=== PATIENT | male | born 1990 | race Caucasian/White ===

== ENCOUNTER 2023-12-05 10:10 | Day surgery (SDC) | payer BC, OTHER ==
[~2023-12-05 10:10] MED LIST: BENZOCAINE SPRAY 1 CAN TOPICAL PRN; MIDAZOLAM 2 MG/2 ML VIAL IV PRN; fentaNYL (PF) 50 MCG/ML 5 ML AMP IVP PRN
[2023-12-05] MEDS: IV FLUID CONTINUATION 1,000 ML IV ONE (10:19)
[2023-12-05 10:40] VITALS: TEMP 98.1
[2023-12-05] MEDS ORDERED: fentaNYL (PF) 50 MCG/ML 2 ML AMP ONE (11:02)
[2023-12-05] MEDS: MIDAZOLAM 2 MG/2 ML VIAL IVP ONE ×3 (11:15→11:23)
[2023-12-05] MEDS: fentaNYL (PF) 50 MCG/ML 2 ML AMP IVP ONE ×2 (11:15→11:20)
[2023-12-05] MEDS: BENZOCAINE SPRAY 1 CAN TOPICAL ONE (11:20)
--- NOTE | 2023-12-05 11:32 | P.PCN ---
Date of Procedure: 12/05/23 Operative Findings: TRANSESOPHAGEAL ECHOCARDIOGRAM LIE DETECTOR OPERATOR: SHRAVAN VALDEZ MD, RPVI INDICATION: Rule out cardiac source of embolization SEDATION: Conscious sedation COMPLICATION: None LEVEL OF SEDATION Moderate with sedation length of 12 minutes PROCEDURE DESCRIPTION: After obtaining an informed consent, the patient was brought to transesophageal echocardiogram room. Pulse oximetry and heart monitors were attached to the patient. The patient throat was sprayed using lidocaine. The patient was turned into left lateral position. After that a bite guard was placed. After an appropriate conscious sedation was initiated, the transesophageal echocardiogram was advanced through a bite guard into the mid esophagus. A 2-D echocardiogram images, color Doppler images, continuous wave images, pulse-wave images, of various cardiac structure were performed. After that the transesophageal echocardiogram probe was advanced into the stomach and fixed to obtain transgastric view was. The probe was brought into the mid esophagus. Inter-atrial septum was interrogated using 2D images, color Doppler images, and then contrast study. After that transesophageal echocardiogram was withdrawn out and upon withdrawing the descending thoracic aorta all the way up to the arch was evaluated. CONCLUSION: 1. No evidence of cardiac source of embolization 2. Intact left atrial appendage with no thrombus 3. Intact interatrial septum with no PFO or ASD 4. Normal biventricular systolic function 5. Moderate biatrial enlargement 6. Moderate mitral regurgitation
[2023-12-05 14:05] VITALS: BP 125/71; RESP 16
[2023-12-05 14:08] VITALS: PULSE 67
== END 2023-12-05 12:41 | disposition home or self-care (01) ==
LOC: CATHCVL 10:10
PROVIDERS: ATTEND Internal Medicine Interventional Cardiology
DX: I34.0 Nonrheumatic mitral (valve) insufficiency
CPT/HCPCS: 93312; 93320; 93325

== ENCOUNTER 2024-06-04 16:22 | Emergency (ER) | payer BC ==
[2024-06-04 17:26] LABS: Basophils % (A) 0 %; Eosinophils # (A) 0.1 k/uL (0-0.7); Eosinophils % (A) 1 %; HGB 16.9 gm/dL (13.0-17.5); Lymphocytes # (A) 0.4 k/uL (1.0-4.8); Lymphocytes % (A) 3 %; MCHC 33.2 g/dL (31.0-37.0); MCV 81.6 fL (80.0-100.0); Mean Platelet Volume 6.6; Monocytes # (A) 0.6 k/uL (0-1.0); Monocytes % (A) 5 %; Neutrophils # (A) 11.2 k/uL (1.3-7.7); Neutrophils % (A) 91 %; Platelet Count 206 k/uL (150-450); RBC 6.25 m/uL (4.30-5.90); RDW 12.5 % (11.5-15.5); WBC 12.3 k/uL (3.8-10.6)
[2024-06-04] MEDS: ONDANSETRON 4 MG/2 ML VIAL IVP STA (17:34)
[2024-06-04] MEDS: SODIUM CHLORIDE 0.9% 1,000 ML IV STA (17:34)
[2024-06-04 17:39] LABS: ALT 49 U/L (4-49); African American GFR (CKD) >90 (>60 ml/min/1.73 sqM); Amylase 64 U/L (30-110); Anion Gap 15 mmol/L; Blood Urea Nitrogen 14 mg/dL (9-20); Calcium 9.5 mg/dL (8.4-10.2); Carbon Dioxide 19 mmol/L (22-30); Chloride 103 mmol/L (98-107); Glucose 87 mg/dL (74-99); Lipase 93 U/L (23-300); Non-African American GFR(CKD) >90 (>60 ml/min/1.73 sqM); Sodium 137 mmol/L (137-145)
[2024-06-04 17:40] LABS: AST 39 U/L (17-59); Albumin 5.1 g/dL (3.5-5.0); Alkaline Phosphatase 102 U/L (38-126); Potassium 4.7 mmol/L (3.5-5.1); Total Protein 8.2 g/dL (6.3-8.2)
[2024-06-04 19:20] VITALS: PULSE 100; RESP 18; TEMP 99
--- NOTE | 2024-06-04 19:25 | ED ---
General Adult HPI - General Chief complaint: Nausea/Vomiting/Diarrhea Stated complaint: vomiting Time Seen by Provider: 06/04/24 16:53 Source: patient Mode of arrival: ambulatory Limitations: no limitations - History of Present Illness Initial comments: 34-year-old male presenting with chief complaint of nausea vomiting and diarrhea. Started this morning around 6 AM. States that his is recently sick with norovirus and thinks that he has caught it. He is having some abdominal pain as well as a headache and lower back pain. He also admits to shobha weaver. He was unable to take his medications today. He reports that he is stroke back in January and takes Plavix and aspirin. No chest pain or difficulty breathing. No vision disturbances. States that he does have a bit of dizziness when he moves around. No numbness tingling or URI-like symptoms. - Related Data Home Medications Medication Instructions Recorded Confirmed Aspirin [Adult Low Dose Aspirin EC] 81 mg PO DAILY 12/01/23 06/04/24 Atorvastatin Calcium [Lipitor] 80 mg PO HS 12/01/23 06/04/24 Clopidogrel [Plavix] 75 mg PO DAILY 12/01/23 06/04/24 Levothyroxine Sodium [Synthroid] 50 mcg PO DAILY 12/01/23 06/04/24 Magnesium Oxide [Magox 400] 400 mg PO DAILY 06/04/24 06/04/24 Ubidecarenone [Coenzyme Q10] 200 mg PO W/LUNCH 06/04/24 06/04/24 Previous Rx's Medication Instructions Recorded Ondansetron Odt [Zofran Odt] 4 mg PO Q8HR PRN #20 tab 06/04/24 Allergies Allergy/AdvReac Type Severity Reaction Status Date / Time sulfamethoxazole AdvReac Rapid Verified 06/04/24 18:51 [From Bactrim] Heart Rate trimethoprim [From Bactrim] AdvReac Rapid Verified 06/04/24 18:51 Heart Rate Review of Systems ROS Statement: Those systems with pertinent positive or pertinent negative responses have been documented in the HPI. ROS Other: All systems not noted in ROS Statement are negative. Past Medical History Past Medical History: CVA/TIA, Hyperlipidemia, Liver Disease, Thyroid Disorder Additional Past Medical History / Comment(s): kimberly schlatter, migraines, cva 11/21/23 no residual issues, fatty liver, blood clot in rt arm History of Any Multi-Drug Resistant Organisms: None Reported Additional Past Surgical History / Comment(s): wisdom teeth Past Anesthesia/Blood Transfusion Reactions: No Reported Reaction Past Psychological History: No Psychological Hx Reported Smoking Status: Former smoker Past Alcohol Use History: None Reported Past Drug Use History: None Reported - Past Family History Father Family Medical History: No Reported History General Exam Limitations: no limitations General appearance: alert, in no apparent distress Head exam: Present: atraumatic, normocephalic, normal inspection Eye exam: Present: normal appearance, EOMI Neck exam: Present: normal inspection. Absent: meningismus Respiratory exam: Present: normal lung sounds bilaterally. Absent: respiratory distress, wheezes, rales, rhonchi, stridor Cardiovascular Exam: Present: normal rhythm, tachycardia, normal heart sounds. Absent: systolic murmur, diastolic murmur, rubs, gallop, clicks GI/Abdominal exam: Present: soft, tenderness. Absent: distended, guarding, rebound, rigid Neurological exam: Present: alert, oriented X3 Psychiatric exam: Present: normal affect, normal mood Skin exam: Present: warm, dry Course Vital Signs 06/04/24 06/04/24 06/04/24 16:24 17:05 19:17 Temperature 99.5 F 99.0 F Pulse Rate 116 H 93 100 Respiratory 18 16 18 Rate Blood Pressure 126/83 117/90 104/68 O2 Sat by Pulse 99 100 100 Oximetry 06/04/24 20:12 Temperature Pulse Rate 100 Respiratory 18 Rate Blood Pressure 120/78 O2 Sat by Pulse 100 Oximetry Medical Decision Making - Medical Decision Making Was pt. sent in by a medical professional or institution (, PA, COAGULATING DRYING SUPERVISOR, urgent care, hospital, or fpc...) When possible be specific @ -No Did you speak to anyone other than the patient for history (EMS, parent, family, police, friend...)? What history was obtained from this source @ -No Did you review nursing and triage notes (agree or disagree)? Why? @ -I reviewed and agree with nursing and triage notes Were old charts reviewed (outside hosp., previous admission, EMS record, old EKG, old radiological studies, urgent care reports/EKG's, fpc records)? Report findings @ -No old charts were reviewed Differential Diagnosis (chest pain, altered mental status, abdominal pain women, abdominal pain men, vaginal bleeding, weakness, fever, dyspnea, syncope, headache, dizziness, GI bleed, back pain, seizure, CVA, palpatations, mental health, musculoskeletal)? @ -Differential includes gastroenteritis, colitis, diverticulitis, appendicitis, cholecystitis, bowel obstruction, not an all-inclusive list EKG interpreted by me (3pts min.). @ -As above X-rays interpreted by me (1pt min.). @ -None done CT interpreted by me (1pt min.). @ -Brain CT shows no acute intracranial process U/S interpreted by me (1pt. min.). @ -None done What testing was considered but not performed or refused? (CT, X-rays, U/S, labs)? Why? @ -I offered to perform an abdominal CT, patient declines stating that he is feeling better and thinks he has the same virus that his had What meds were considered but not given or refused? Why? @ -None Did you discuss the management of the patient with other professionals (professionals i.e. , PA, COAGULATING DRYING SUPERVISOR, lab, RT, psych nurse, child welfare social worker, senior science consultant, teacher, bank officer, case loader operator)? Give summary @ -No Was smoking cessation discussed for >3mins.? @ -No Was critical care preformed (if so, how long)? @ -No Were there social determinants of health that impacted care today? How? (Homelessness, low income, unemployed, alcoholism, drug addiction, transportation, low edu. Level, literacy, decrease access to med. care, half-way, rehab)? @ -No Was there de-escalation of care discussed even if they declined (Discuss DNR or withdrawal of care, Hospice)? DNR status @ -No What co-morbidities impacted this encounter? (DM, HTN, Smoking, COPD, CAD, Cancer, CVA, ARF, Chemo, Hep., AIDS, mental health diagnosis, sleep apnea, morbid obesity)? @ -None Was patient admitted / discharged? Hospital course, mention meds given and route, prescriptions, significant lab abnormalities, going to OR and other pertinent info. @ -34-year-old male presenting with chief complaint of nausea vomiting and diarrhea. His recently had norovirus and he thinks that he caught the same bug. He is also complaining of some abdominal discomfort, lower back pain, and headache. History and physical examination are conducted. White count 12.3, this may be reactive. Bilirubin 2.0, likely due to the vomiting. Amylase and lipase are WNL. He is negative for influenza, RSV, COVID. I offered to perform an abdominal CT, patient declines. Patient is concerned because he is taking Plavix and has a headache, he is concerned that with the vomiting he could be having some kind of acute intracranial process happening. GCS 15 with no evidence of any neurological deficits. We decided to order a CT to help ease his worries. CT of the brain shows no acute process. Patient was able to take his medications here with no difficulty and is tolerating oral intake. He is educated on today's findings and supportive management. Follow-up with PCP. Report back to ER with any new or worsening symptoms. Discussed return paramet ers and answered all questions. Patient conveyed verbal understanding and agreed to the plan. I discussed this case in detail with my attending Dr. Aranda Undiagnosed new problem with uncertain prognosis? @ -No Drug Therapy requiring intensive monitoring for toxicity (Heparin, Nitro, Insulin, Cardizem)? @ -No Were any procedures done? @ -No Diagnosis/symptom? @ -Gastroenteritis Acute, or Chronic, or Acute on Chronic? @ -Acute Uncomplicated (without systemic symptoms) or Complicated (systemic symptoms)? @ -Uncomplicated Side effects of treatment? @ -No Exacerbation, Progression, or Severe Exacerbation? @ -No Poses a threat to life or bodily function? How? (Chest pain, USA, PA, pneumonia, PE, COPD, DKA, ARF, appy, cholecystitis, CVA, Diverticulitis, Homicidal, Suicidal, threat to staff... and all critical care pts) @ -Low likelihood - Lab Data Result diagrams: 06/04/24 17:16 06/04/24 17:16 Lab Results 06/04/24 06/04/24 06/04/24 Range/Units 17:16 17:16 17:16 WBC 12.3 H (3.8-10.6) k/uL RBC 6.25 H (4.30-5.90) m/uL Hgb 16.9 (13.0-17.5) gm/dL Hct 51.0 (39.0-53.0) % MCV 81.6 (80.0-100.0) fL MCH 27.0 (25.0-35.0) pg MCHC 33.2 (31.0-37.0) g/dL RDW 12.5 (11.5-15.5) % Plt Count 206 (150-450) k/uL MPV 6.6 Neutrophils % 91 % Lymphocytes % 3 % Monocytes % 5 % Eosinophils % 1 % Basophils % 0 % Neutrophils # 11.2 H (1.3-7.7) k/uL Lymphocytes # 0.4 L (1.0-4.8) k/uL Monocytes # 0.6 (0-1.0) k/uL Eosinophils # 0.1 (0-0.7) k/uL Basophils # 0.0 (0-0.2) k/uL Sodium 137 (137-145) mmol/L Potassium 4.7 (3.5-5.1) mmol/L Chloride 103 (98-107) mmol/L Carbon Dioxide 19 L (22-30) mmol/L Anion Gap 15 mmol/L BUN 14 (9-20) mg/dL Creatinine 0.69 (0.66-1.25) mg/dL Est GFR (CKD-EPI)AfAm >90 (>60 ml/min/1.73 sqM) Est GFR (CKD-EPI)NonAf >90 (>60 ml/min/1.73 sqM) Glucose 87 (74-99) mg/dL Plasma Lactic Acid Pierre 1.0 (0.7-2.0) mmol/L Calcium 9.5 (8.4-10.2) mg/dL Total Bilirubin 2.0 H (0.2-1.3) mg/dL AST 39 (17-59) U/L ALT 49 (4-49) U/L Alkaline Phosphatase 102 (38-126) U/L Total Protein 8.2 (6.3-8.2) g/dL Albumin 5.1 H (3.5-5.0) g/dL Amylase 64 (30-110) U/L Lipase 93 (23-300) U/L Influenza Type A (PCR) (Not Detectd) Influenza Type B (PCR) (Not Detectd) RSV (PCR) (Not Detectd) SARS-CoV-2 (PCR) (Not Detectd) 06/04/24 Range/Units 17:16 WBC (3.8-10.6) k/uL RBC (4.30-5.90) m/uL Hgb (13.0-17.5) gm/dL Hct (39.0-53.0) % MCV (80.0-100.0) fL MCH (25.0-35.0) pg MCHC (31.0-37.0) g/dL RDW (11.5-15.5) % Plt Count (150-450) k/uL MPV Neutrophils % % Lymphocytes % % Monocytes % % Eosinophils % % Basophils % % Neutrophils # (1.3-7.7) k/uL Lymphocytes # (1.0-4.8) k/uL Monocytes # (0-1.0) k/uL Eosinophils # (0-0.7) k/uL Basophils # (0-0.2) k/uL Sodium (137-145) mmol/L Potassium (3.5-5.1) mmol/L Chloride (98-107) mmol/L Carbon Dioxide (22-30) mmol/L Anion Gap mmol/L BUN (9-20) mg/dL Creatinine (0.66-1.25) mg/dL Est GFR (CKD-EPI)AfAm (>60 ml/min/1.73 sqM) Est GFR (CKD-EPI)NonAf (>60 ml/min/1.73 sqM) Glucose (74-99) mg/dL Plasma Lactic Acid Pierre (0.7-2.0) mmol/L Calcium (8.4-10.2) mg/dL Total Bilirubin (0.2-1.3) mg/dL AST (17-59) U/L ALT (4-49) U/L Alkaline Phosphatase (38-126) U/L Total Protein (6.3-8.2) g/dL Albumin (3.5-5.0) g/dL Amylase (30-110) U/L Lipase (23-300) U/L Influenza Type A (PCR) Not Detected (Not Detectd) Influenza Type B (PCR) Not Detected (Not Detectd) RSV (PCR) Not Detected (Not Detectd) SARS-CoV-2 (PCR) Not Detected (Not Detectd) Disposition Clinical Impression: Gastroenteritis Disposition: HOME SELF-CARE Condition: Good Instructions (If sedation given, give patient instructions): Acute Nausea and Vomiting (ED), Acute Diarrhea (ED) Additional Instructions: Follow-up with PCP. Report back to ER with any new or worsening symptoms. Prescriptions: Ondansetron Odt [Zofran Odt] 4 mg PO Q8HR PRN #20 tab PRN Reason: Nausea Is patient prescribed a controlled substance at d/c from ED?: No Referrals: Ze Flannery MD [Primary Care Provider] - 1-2 days Time of Disposition: 20:09
[2024-06-04] MEDS: SODIUM CHLORIDE 0.9% 1,000 ML IV ONE (19:34)
--- NOTE | 2024-06-04 19:41 | CT ---
EXAMINATION TYPE: CT brain wo con DATE OF EXAM: 06/04/2024 7:36 PM COMPARISON: None. CLINICAL INDICATION: Male, 34 years old with history of MASSEY, recent stroke, N/V/D, fatigue, headache a nd weakness starting around 6 am. exposure to NOROvirus. Stroke x 8 months ago TECHNIQUE: Brain: Axial CT images of the brain were obtained with coronal and sagittal reformats created and rev iewed. Contrast used: None. Oral contrast used: None. CT DLP: 1132.4 mGycm, Automated exposure control for dose reduction was used. FINDINGS: Brain: Extra-axial spaces: No abnormal extra-axial fluid collections. Ventricular system: Within normal limits Cerebral parenchyma: No acute intraparenchymal hemorrhage or mass effect. The hoyos-white junction is well differentiated. Cerebellum: Unremarkable. Mass effect: No evidence of midline shift. Intracranial vasculature: unremarkable Soft tissues: Normal. Calvarium/osseous structures: No depressed skull fracture. Paranasal sinuses and mastoid air cells: Mild scattered paranasal sinus disease. Visualized orbits: Orbital contents are intact. IMPRESSION: No acute intracranial process. [facility], , 06/04/2024 7:39 PM
[2024-06-04] MEDS: CLOPIDOGREL 75 MG TAB PO STA (19:50)
[2024-06-04] MEDS: ASPIRIN 81 MG PO STA (19:51)
[2024-06-04 20:13] LABS: Influenza A Not Detected (Not Detectd); Influenza B Not Detected (Not Detectd); RSV Not Detected (Not Detectd)
[2024-06-04 20:18] VITALS: BP 120/78
== END 2024-06-04 20:24 | disposition home or self-care (01) ==
LOC: EC 16:22
DX: K52.9 Noninfective gastroenteritis and colitis, unspecified (principal); Z87.891 Personal history of nicotine dependence; Z11.52 Encounter for screening for COVID-19; Z79.82 Long term (current) use of aspirin
CPT/HCPCS: 36415; 80053; 82150; 83605; 83690; 85025; 87636; 70450; 99284; 96374; 96361 ×3; J2405

== ENCOUNTER 2024-09-15 18:19 | Emergency (ER) | payer BC ==
[2024-09-15 18:26] VITALS: RESP 18; TEMP 98.6
--- NOTE | 2024-09-15 18:47 | ED ---
Neuro HPI - General Chief Complaint: Neuro Symptoms/Deficit Stated Complaint: Numbness in arms Time Seen by Provider: 09/15/24 18:40 Source: patient Mode of arrival: ambulatory - History of Present Illness Is the patient presenting with stroke symptoms?: Yes Last Known Well Date: 09/15/24 Last Known Well Time: 14:00 Onset/Timin -: hour(s) Initial Comments: This patient is a 34-year-old man who states that he has had previous stroke treated with tPA, approximately 1 year ago, coming in to have evaluation of right sided paresthesias to the hand, forearm, right foot and leg. He states the symptoms started approximately 4 hours before arrival here. When they seem to be progressing he felt he should be seen here. The patient's previous episode occurred at [facility]. He reportedly had aphasia, problem with his vision, and right sided numbness. The patient reportedly had treatment with tPA and has no deficit related to that. Location: right arm, right leg History of same: Yes Place: home Severity: mild Quality: numb Improves With: none Worsens With: none Context: gradual onset Associated Symptoms: denies other symptoms Treatments Prior to Arrival: none - Related Data Home Medications: Home Medications Medication Instructions Recorded Confirmed Aspirin [Adult Low Dose Aspirin EC] 81 mg PO DAILY 12/01/23 06/04/24 Atorvastatin Calcium [Lipitor] 80 mg PO HS 12/01/23 06/04/24 Clopidogrel [Plavix] 75 mg PO DAILY 12/01/23 06/04/24 Levothyroxine Sodium [Synthroid] 50 mcg PO DAILY 12/01/23 06/04/24 Magnesium Oxide [Magox 400] 400 mg PO DAILY 06/04/24 06/04/24 Ubidecarenone [Coenzyme Q10] 200 mg PO W/LUNCH 06/04/24 06/04/24 Previous Rx's Medication Instructions Recorded Ondansetron Odt [Zofran Odt] 4 mg PO Q8HR PRN #20 tab 06/04/24 Allergies/Adverse Reactions: Allergies Allergy/AdvReac Type Severity Reaction Status Date / Time sulfamethoxazole AdvReac Rapid Verified 09/15/24 18:26 [From Bactrim] Heart Rate trimethoprim [From Bactrim] AdvReac Rapid Verified 09/15/24 18:26 Heart Rate Review of Systems ROS Statement: Those systems with pertinent positive or pertinent negative responses have been documented in the HPI. ROS Other: All systems not noted in ROS Statement are negative. Constitutional: Denies: fever, chills Eyes: Denies: vision change ENT: Denies: hearing loss Respiratory: Denies: cough, dyspnea Cardiovascular: Denies: chest pain, palpitations, syncope Gastrointestinal: Denies: abdominal pain, nausea, vomiting, diarrhea Genitourinary: Denies: dysuria, hematuria Musculoskeletal: Denies: back pain Skin: Denies: rash Neurological: Reports: numbness, paresthesias. Denies: headache, weakness, confusion, abnormal gait Hematological/Lymphatic: Denies: easy bleeding General Exam General appearance: alert, in no apparent distress Head exam: Present: atraumatic, normocephalic Eye exam: Present: normal appearance, PERRL, EOMI. Absent: scleral icterus, conjunctival injection, nystagmus ENT exam: Present: normal oropharynx Neck exam: Present: normal inspection, full ROM Respiratory exam: Present: normal lung sounds bilaterally. Absent: respiratory distress, wheezes, rales, rhonchi, stridor, accessory muscle use Cardiovascular Exam: Present: regular rate, normal rhythm, normal heart sounds. Absent: systolic murmur, diastolic murmur, rubs, gallop GI/Abdominal exam: Present: soft. Absent: distended, tenderness, guarding, rebound, rigid, mass Extremities exam: Present: normal inspection, normal capillary refill. Absent: pedal edema, calf tenderness Back exam: Present: normal inspection. Absent: CVA tenderness (R), CVA tenderness (L) Neurological exam: Present: alert, oriented X3, CN II-XII intact, normal gait. Absent: motor sensory deficit Skin exam: Present: warm, dry, intact, normal color. Absent: rash Stroke MDM - Lab Data Result diagrams: 09/15/24 19:00 09/15/24 19:00 Lab Results 09/15/24 09/15/24 09/15/24 Range/Units 19:00 19:00 19:00 WBC 8.28 (4.50-10.00) 10*3/uL RBC 5.98 H (4.40-5.60) 10*6/uL Hgb 16.5 (13.0-17.0) g/dL Hct 48.6 (39.6-50.0) % MCV 81.3 (80.0-97.0) fL MCH 27.6 (27.0-32.0) pg MCHC 34.0 (32.0-37.0) g/dL Plt Count 277 (140-440) 10*3/uL MPV 9.0 L (9.5-12.2) fL Immature Gran % (Auto) 0.2 % Neutrophils % 65.5 % Lymphocytes % 24.9 % Monocytes % 7.9 % Eosinophils % 1.0 % Basophils % 0.5 % Immature Gran # 0.02 (0.00-0.04) 10*3/uL Neutrophils # 5.43 (1.80-7.70) 10*3/uL Lymphocytes # 2.06 (0.90-5.00) 10*3/uL Monocytes # 0.65 (0.20-1.00) 10*3/uL Eosinophils # 0.08 (0.04-0.35) 10*3/uL Basophils # 0.04 (0.00-0.10) 10*3/uL PT 10.7 (10.0-12.5) sec INR 1.0 (<1.2) APTT 24.2 (22.0-30.0) sec Sodium 141 (137-145) mmol/L Potassium 4.0 (3.5-5.1) mmol/L Chloride 102 (98-107) mmol/L Carbon Dioxide 24 (22-30) mmol/L Anion Gap 15 mmol/L BUN 14 (9-20) mg/dL Creatinine 0.81 (0.66-1.25) mg/dL Est GFR (CKD-EPI)AfAm >90 (>60 ml/min/1.73 sqM) Est GFR (CKD-EPI)NonAf >90 (>60 ml/min/1.73 sqM) Glucose 86 (74-99) mg/dL Calcium 9.9 (8.4-10.2) mg/dL Total Bilirubin 0.6 (0.2-1.3) mg/dL AST 32 (17-59) U/L ALT 49 (4-49) U/L Alkaline Phosphatase 87 (38-126) U/L Creatine Kinase 169 (55-170) U/L Troponin I (0.000-0.034) ng/mL Total Protein 8.6 H (6.3-8.2) g/dL Albumin 5.1 H (3.5-5.0) g/dL 09/15/24 Range/Units 19:00 WBC (4.50-10.00) 10*3/uL RBC (4.40-5.60) 10*6/uL Hgb (13.0-17.0) g/dL Hct (39.6-50.0) % MCV (80.0-97.0) fL MCH (27.0-32.0) pg MCHC (32.0-37.0) g/dL Plt Count (140-440) 10*3/uL MPV (9.5-12.2) fL Immature Gran % (Auto) % Neutrophils % % Lymphocytes % % Monocytes % % Eosinophils % % Basophils % % Immature Gran # (0.00-0.04) 10*3/uL Neutrophils # (1.80-7.70) 10*3/uL Lymphocytes # (0.90-5.00) 10*3/uL Monocytes # (0.20-1.00) 10*3/uL Eosinophils # (0.04-0.35) 10*3/uL Basophils # (0.00-0.10) 10*3/uL PT (10.0-12.5) sec INR (<1.2) APTT (22.0-30.0) sec Sodium (137-145) mmol/L Potassium (3.5-5.1) mmol/L Chloride (98-107) mmol/L Carbon Dioxide (22-30) mmol/L Anion Gap mmol/L BUN (9-20) mg/dL Creatinine (0.66-1.25) mg/dL Est GFR (CKD-EPI)AfAm (>60 ml/min/1.73 sqM) Est GFR (CKD-EPI)NonAf (>60 ml/min/1.73 sqM) Glucose (74-99) mg/dL Calcium (8.4-10.2) mg/dL Total Bilirubin (0.2-1.3) mg/dL AST (17-59) U/L ALT (4-49) U/L Alkaline Phosphatase (38-126) U/L Creatine Kinase (55-170) U/L Troponin I <0.012 (0.000-0.034) ng/mL Total Protein (6.3-8.2) g/dL Albumin (3.5-5.0) g/dL - Medical Decision Making The patient had chest x-ray that I interpreted as negative for acute infiltrate, pneumothorax, congestive heart failure. The patient had CT scan of the brain that I interpreted as negative for acute intracranial hemorrhage, negative for mass effect or midline shift. Was pt. sent in by a medical professional or institution (, PA, CHIEF JAILER, urgent care, hospital, or assisted...) When possible be specific @ -[No] Did you speak to anyone other than the patient for history (EMS, parent, family, police, friend...)? What history was obtained from this source @ -[No] Did you review nursing and triage notes (agree or disagree)? Why? @ -[I reviewed and agree with nursing and triage notes] Were old charts reviewed (outside hosp., previous admission, EMS record, old EKG, old radiological studies, urgent care reports/EKG's, assisted records)? Report findings @ -[No old charts were reviewed] Differential Diagnosis (chest pain, altered mental status, abdominal pain women, abdominal pain men, vaginal bleeding, weakness, fever, dyspnea, syncope, headache, dizziness, GI bleed, back pain, seizure, CVA, palpatations, mental health, musculoskeletal)? @ -[Differential CVA Ischemic stroke, hemorrhagic stroke, brain tumor, atypical migraine, Wernicke's encephalopathy, seizure, multiple sclerosis, meningitis, encephalitis, hypoglycemia, Guillain-Yarbrough, electrolytes disturbance, myasthenia gravis.... This is not meant to be an all-inclusive list EKG interpreted by me (3pts min.). @ -[I interpreted as above] X-rays interpreted by me (1pt min.). @ -[I interpreted as above CT interpreted by me (1pt min.). @ -[I interpreted as above U/S interpreted by me (1pt. min.). @ -[None done] What testing was considered but not performed or refused? (CT, X-rays, U/S, labs)? Why? @ -[None] What meds were considered but not given or refused? Why? @ -[None] Did you discuss the management of the patient with other professionals (professionals i.e. , PA, CHIEF JAILER, lab, RT, psych nurse, clinical social work therapist, collar worker, teacher, staff readiness officer, returned case inspector)? Give summary @ -[No] Was smoking cessation discussed for >3mins.? @ -[No] Was critical care preformed (if so, how long)? @ -[No] Were there social determinants of health that impacted care today? How? (Homelessness, low income, unemployed, alcoholism, drug addiction, transportation, low edu. Level, literacy, decrease access to med. care, penitentiary, rehab)? @ -[No] Was there de-escalation of care discussed even if they declined (Discuss DNR or withdrawal of care, Hospice)? DNR status @ -[No] What co-morbidities impacted this encounter? (DM, HTN, Smoking, COPD, CAD, Cancer, CVA, ARF, Chemo, Hep., AIDS, mental health diagnosis, sleep apnea, morbid obesity)? @ -[None] Was patient admitted / discharged? Hospital course, mention meds given and route, prescriptions, significant lab abnormalities, going to OR and other pertinent info. @ -[Patient is a 34-year-old man with reported history of stroke who presents with neurologic symptoms that came on but then have completely resolved now. His workup here is unremarkable. The patient may have had TIA. Discussed further evaluation and treatment with the patient who at this point would like to go home. He will maintain low threshold to return coming back if any symptoms recur or new symptoms develop. Otherwise to follow with neurology. Undiagnosed new problem with uncertain prognosis? @ -[No] Drug Therapy requiring intensive monitoring for toxicity (Heparin, Nitro, Insulin, Cardizem)? @ -[No] Were any procedures done? @ -[No] Diagnosis/symptom? @ -[Acute TIA Acute, or Chronic, or Acute on Chronic? @ -[Acute Uncomplicated (without systemic symptoms) or Complicated (systemic symptoms)? @ -[Uncomplicated Side effects of treatment? @ -[No] Exacerbation, Progression, or Severe Exacerbation? @ -[No] Poses a threat to life or bodily function? How? (Chest pain, [place], [place], pneumonia, PE, COPD, DKA, ARF, appy, cholecystitis, CVA, Diverticulitis, Homicidal, Suicidal, threat to staff... and all critical care pts) @ -[No] All treatments are based on ideal body weight as in ED triage - EKG Data -: EKG Interpreted by Me EKG shows normal: sinus rhythm (Rate 81), axis (Normal), intervals ( normal), QRS complexes (Normal), ST-T waves (Normal) Rate: normal Interpretation: no acute changes Past Medical History Past Medical History: CVA/TIA, Hyperlipidemia, Liver Disease, Thyroid Disorder Additional Past Medical History / Comment(s): kimberly schlatter, migraines, cva 11/21/23 no residual issues, fatty liver, blood clot in rt arm History of Any Multi-Drug Resistant Organisms: None Reported Additional Past Surgical History / Comment(s): wisdom teeth Past Anesthesia/Blood Transfusion Reactions: No Reported Reaction Past Psychological History: No Psychological Hx Reported Smoking Status: Former smoker Past Alcohol Use History: Occasional Past Drug Use History: None Reported - Past Family History Father Family Medical History: No Reported History Course Vital Signs 09/15/24 09/15/24 09/15/24 18:23 19:00 22:28 Temperature 98.6 F Pulse Rate 101 H 84 68 Respiratory 18 18 18 Rate Blood Pressure 153/84 144/90 128/76 O2 Sat by Pulse 98 99 99 Oximetry Disposition Clinical Impression: TIA (transient ischemic attack) Disposition: HOME SELF-CARE Condition: Good Instructions (If sedation given, give patient instructions): Transient Ischemic Attack (ED) Is patient prescribed a controlled substance at d/c from ED?: No Referrals: Julian Booker DO [Primary Care Provider] - 1-2 days Matthew Florence MD [STAFF PHYSICIAN] - 1-2 days
[2024-09-15 19:05] LABS: Basophils # (A) 0.04 10*3/uL (0.00-0.10); Basophils % (A) 0.5 %; Eosinophils # (A) 0.08 10*3/uL (0.04-0.35); HCT 48.6 % (39.6-50.0); HGB 16.5 g/dL (13.0-17.0); Lymphocytes # (A) 2.06 10*3/uL (0.90-5.00); Lymphocytes % (A) 24.9 %; MCH 27.6 pg (27.0-32.0); MCV 81.3 fL (80.0-97.0); Monocytes # (A) 0.65 10*3/uL (0.20-1.00); Monocytes % (A) 7.9 %; Neutrophils # (A) 5.43 10*3/uL (1.80-7.70); Neutrophils % (A) 65.5 %; Platelet Count 277 10*3/uL (140-440); RBC 5.98 10*6/uL (4.40-5.60); RDW 12.1 % (11.5-14.5); WBC 8.28 10*3/uL (4.50-10.00)
--- NOTE | 2024-09-15 19:06 | CT ---
EXAMINATION TYPE: CODE STROKE: CT brain wo contr DATE OF EXAM: 09/15/2024 7:00 PM COMPARISON: Prior CT brain study 06/04/2024. CLINICAL INDICATION: Male, 34 years old with history of Neuro deficit, acute, stroke suspected, Code stroke. C/O "pins and needles" in the right hand for about 4 hours. Patient states he can feel it now up into his elbow and into his right foot. Patient states a history of stroke last year with no defi cits. TECHNIQUE: Brain: Axial CT images of the brain were obtained with coronal and sagittal reformats created and rev iewed. Contrast used: None. Oral contrast used: None. CT DLP: 1126.6 mGycm, Automated exposure control for dose reduction was used. FINDINGS: Brain: Extra-axial spaces: No abnormal extra-axial fluid collections. Ventricular system: Within normal limits Cerebral parenchyma: No acute intraparenchymal hemorrhage or mass effect. Questionable/nonspecific h igh density appearance of the left MCA (23-58). Cerebellum: Unremarkable. Mass effect: No evidence of midline shift. Intracranial vasculature: unremarkable Soft tissues: Normal. Calvarium/osseous structures: No depressed skull fracture. Paranasal sinuses and mastoid air cells: Mild scattered paranasal sinus disease. Visualized orbits: Orbital contents are intact. IMPRESSION: No acute cranial hemorrhage, midline shift or significant mass effect. *If there is continued clinical concern for acute infarction, further evaluation with brain MRI would be recommended. [facility], , 09/15/2024 7:04 PM
[2024-09-15 19:18] LABS: ALT 49 U/L (4-49); AST 32 U/L (17-59); African American GFR (CKD) >90 (>60 ml/min/1.73 sqM); Albumin 5.1 g/dL (3.5-5.0); Alkaline Phosphatase 87 U/L (38-126); Anion Gap 15 mmol/L; Blood Urea Nitrogen 14 mg/dL (9-20); Calcium 9.9 mg/dL (8.4-10.2); Carbon Dioxide 24 mmol/L (22-30); Chloride 102 mmol/L (98-107); Creatine Kinase 169 U/L (55-170); Glucose 86 mg/dL (74-99); Non-African American GFR(CKD) >90 (>60 ml/min/1.73 sqM); Sodium 141 mmol/L (137-145); Total Bilirubin 0.6 mg/dL (0.2-1.3); Total Protein 8.6 g/dL (6.3-8.2)
[2024-09-15 19:20] LABS: Partial Thromboplastin Time 24.2 sec (22.0-30.0); Prothrombin Time 10.7 sec (10.0-12.5)
--- NOTE | 2024-09-15 19:37 | XR ---
EXAMINATION TYPE: XR chest 2V DATE OF EXAM: 09/15/2024 7:31 PM COMPARISON: None. CLINICAL INDICATION: Male, 34 years old with history of altered mental status; [facility] TECHNIQUE: XR chest 2V Frontal and lateral views of the chest. FINDINGS: Lungs/Pleura: There is no evidence of pleural effusion, focal consolidation, or pneumothorax. Pulmonary vascularity: Unremarkable. Heart/mediastinum: Cardiomediastinal silhouette is unremarkable. Musculoskeletal: No acute osseous pathology. Other findings: None IMPRESSION: No acute cardiopulmonary disease/process. [facility], , 09/15/2024 7:35 PM
[2024-09-15] MEDS: SODIUM CHLORIDE 0.9% 500 ML 500 ML IV STA (20:27)
[2024-09-15 22:29] VITALS: BP 128/76; PULSE 68
== END 2024-09-15 22:39 | disposition home or self-care (01) ==
LOC: EC 18:19
DX: G45.9 Transient cerebral ischemic attack, unspecified (principal); Z87.891 Personal history of nicotine dependence; Z88.1 Allergy status to other antibiotic agents; Z88.2 Allergy status to sulfonamides
CPT/HCPCS: 36415; 70450; 71046; 80053; 82550; 84484; 85025; 85610; 85730; 93005; 96360; 96361; 99284

== ENCOUNTER 2024-10-22 12:35 | Observation (INO) | payer BC ==
--- NOTE | 2024-10-22 13:10 | ED ---
General Adult HPI - General Chief complaint: Neuro Symptoms/Deficit Stated complaint: Abd Labs Time Seen by Provider: 10/22/24 12:42 Source: patient, RN notes reviewed Mode of arrival: ambulatory Limitations: no limitations - History of Present Illness Initial comments: This is a 34-year-old male with history including CVA/TIA, hyperlipidemia, liver disease and thyroid disorder presenting with significant other for right arm numbness/tingling occurring at 0800 this morning. Patient endorses paresthesia in his right arm extending from his elbows to his fingers states sensation changes are colicky. Endorses associated left temporal headache. Patient denies facial or lower extremity paresthesia, weakness, vision changes, dysarthria, ataxia. Patient is scheduled for an MRI tomorrow afternoon. States he has been unable to obtain a neurology appointment since his initial CVA diagnosis on 11/21/2023, with subsequent potential TIAs in the following months as well as a possible occurrence on 09/15/2024. Onset/Timin -: hour(s) Time: 08:00 Location: right, upper extremity Consistency: constant, colicky Associated Symptoms: headaches Treatments Prior to Arrival: none - Related Data Home Medications Medication Instructions Recorded Confirmed Aspirin [Adult Low Dose Aspirin EC] 81 mg PO DAILY 12/01/23 06/04/24 Levothyroxine Sodium [Synthroid] 50 mcg PO DAILY 12/01/23 06/04/24 Magnesium Oxide [Magox 400] 400 mg PO DAILY 06/04/24 06/04/24 Ubidecarenone [Coenzyme Q10] 200 mg PO W/LUNCH 06/04/24 06/04/24 Rosuvastatin [Crestor] 10 mg PO HS 10/22/24 10/22/24 Allergies Allergy/AdvReac Type Severity Reaction Status Date / Time sulfamethoxazole AdvReac Rapid Verified 10/22/24 16:58 [From Bactrim] Heart Rate trimethoprim [From Bactrim] AdvReac Rapid Verified 10/22/24 16:58 Heart Rate Review of Systems ROS Statement: Those systems with pertinent positive or pertinent negative responses have been documented in the HPI. ROS Other: All systems not noted in ROS Statement are negative. Past Medical History Past Medical History: CVA/TIA, Hyperlipidemia, Liver Disease, Thyroid Disorder Additional Past Medical History / Comment(s): kimberly schlatter, migraines, cva 11/21/23 no residual issues, fatty liver, blood clot in rt arm History of Any Multi-Drug Resistant Organisms: None Reported Additional Past Surgical History / Comment(s): wisdom teeth Past Anesthesia/Blood Transfusion Reactions: No Reported Reaction Past Psychological History: No Psychological Hx Reported Smoking Status: Former smoker Past Alcohol Use History: Occasional Past Drug Use History: None Reported - Past Family History Father Family Medical History: No Reported History General Exam Limitations: no limitations General appearance: alert, in no apparent distress Head exam: Present: atraumatic, normocephalic, normal inspection Eye exam: Present: normal appearance, PERRL, EOMI (Extraocular motion intact bilaterally), other (Hints exams unremarkable). Absent: scleral icterus, conjunctival injection, periorbital swelling Pupils: Present: normal accommodation ENT exam: Present: normal exam, mucous membranes moist Neck exam: Present: normal inspection. Absent: tenderness, meningismus, lymphadenopathy Respiratory exam: Present: normal lung sounds bilaterally. Absent: respiratory distress, wheezes, rales, rhonchi, stridor Cardiovascular Exam: Present: regular rate, normal rhythm, normal heart sounds. Absent: systolic murmur, diastolic murmur, rubs, gallop, clicks GI/Abdominal exam: Present: soft, normal bowel sounds. Absent: distended, tenderness, guarding, rebound, rigid Extremities exam: Present: full ROM, normal capillary refill, other (Patient notes some subjective paresthesia extending from right elbow to fingertips. Motor function intact and upper tier strength 5/5. Radial pulse +2. Normal sensation and strength in all other extremities including RLE with all major muscle groups). Absent: tenderness, pedal edema, joint swelling, calf tenderness Back exam: Present: normal inspection Neurological exam: Present: alert, oriented X3, CN II-XII intact (Cranial nerves tested and intact), other (Heber stroke test negative. Cerebellar testing including [id number], JOSE E and [id number] all normal.) Psychiatric exam: Present: normal affect, normal mood Skin exam: Present: warm, dry, intact, normal color. Absent: rash Course Vital Signs 10/22/24 10/22/24 10/22/24 12:38 13:24 15:55 Temperature 97.8 F Pulse Rate 75 73 60 Respiratory 16 18 18 Rate Blood Pressure 136/94 133/81 136/87 O2 Sat by Pulse 99 99 99 Oximetry Medical Decision Making - Medical Decision Making Was pt. sent in by a medical professional or institution (JULIO Pritchett, BUSINESS SUPPORT PROFESSIONAL, urgent care, hospital, or jail...) When possible be specific @ -No Did you speak to anyone other than the patient for history (EMS, parent, family, police, friend...)? What history was obtained from this source @ -No Did you review nursing and triage notes (agree or disagree)? Why? @ -I reviewed and agree with nursing and triage notes Were old charts reviewed (outside hosp., previous admission, EMS record, old EKG, old radiological studies, urgent care reports/EKG's, jail records)? Report findings @ -Brain CT from 09/15/2024 indicates possible questionable nonspecific high density appearance of the left MCA with recommended further evaluation with brain MRI. Differential Diagnosis (chest pain, altered mental status, abdominal pain women, abdominal pain men, vaginal bleeding, weakness, fever, dyspnea, syncope, headache, dizziness, GI bleed, back pain, seizure, CVA, palpatations, mental health, musculoskeletal)? @ -Differential CVA Ischemic stroke, hemorrhagic stroke, brain tumor, atypical migraine, Wernicke's encephalopathy, seizure, multiple sclerosis, meningitis, encephalitis, hypoglycemia, Guillain-Yarbrough, electrolytes disturbance, myasthenia gravis.... This is not meant to be an all-inclusive list EKG interpreted by me (3pts min.). @ -Not done X-rays interpreted by me (1pt min.). @ -None done CT interpreted by me (1pt min.). @ -Brain CT shows no acute bleed or mass effect. Brain CTA shows no significant stenosis, segmental occlusion, aneurysm or vascular malformation. U/S interpreted by me (1pt. min.). @ -None done What testing was considered but not performed or refused? (CT, X-rays, U/S, labs)? Why? @ -None What meds were considered but not given or refused? Why? @ -None Did you discuss the management of the patient with other professionals (professionals i.e. JULIO Pritchett, BUSINESS SUPPORT PROFESSIONAL, lab, RT, psych nurse, social sciences lecturer, buyer tobacco head, teacher, resident medical officer, immigration case worker)? Give summary @ -Discussed patient with Dr. Rao from [facility] regarding patient admission. Was smoking cessation discussed for >3mins.? @ -No Was critical care preformed (if so, how long)? @ -No Were there social determinants of health that impacted care today? How? (Homelessness, low income, unemployed, alcoholism, drug addiction, transportation, low edu. Level, literacy, decrease access to med. care, alf, rehab)? @ -No Was there de-escalation of care discussed even if they declined (Discuss DNR or withdrawal of care, Hospice)? DNR status @ -No What co-morbidities impacted this encounter? (DM, HTN, Smoking, COPD, CAD, Cancer, CVA, ARF, Chemo, Hep., AIDS, mental health diagnosis, sleep apnea, morbid obesity)? @ -None Was patient admitted / discharged? Hospital course, mention meds given and route, prescriptions, significant lab abnormalities, going to OR and other pertinent info. @ -Lab work including kidney function and LFTs unremarkable. Brain CT shows no acute bleed or mass effect. Brain CTA shows no significant stenosis, segmental occlusion, aneurysm or vascular malformation. Advised patient that he may be admitted for observation with MRI in morning. Patient given p.o. ASA 324 with consult to neurology and MRA scheduled for the morning. Discussed patient with Dr. Rao from [facility] regarding patient admission. Discussed patient with my attending, Dr. Aranda Undiagnosed new problem with uncertain prognosis? @ -No Drug Therapy requiring intensive monitoring for toxicity (Heparin, Nitro, Insulin, Cardizem)? @ -No Were any procedures done? @ -No Diagnosis/symptom? @ -Right upper extremity paresthesia Acute, or Chronic, or Acute on Chronic? @ -Acute Uncomplicated (without systemic symptoms) or Complicated (systemic symptoms)? @ -Complicated Side effects of treatment? @ -No Exacerbation, Progression, or Severe Exacerbation? @ -No Poses a threat to life or bodily function? How? (Chest pain, [place], [place], pneumonia, PE, COPD, DKA, ARF, appy, cholecystitis, CVA, Diverticulitis, Homicidal, Suicidal, threat to staff... and all critical care pts) @ -No - Lab Data Result diagrams: 10/22/24 13:20 10/22/24 13:20 Lab Results 10/22/24 10/22/24 Range/Units 13:20 13:20 WBC 6.24 (4.50-10.00) 10*3/uL RBC 5.84 H (4.40-5.60) 10*6/uL Hgb 16.4 (13.0-17.0) g/dL Hct 47.4 (39.6-50.0) % MCV 81.2 (80.0-97.0) fL MCH 28.1 (27.0-32.0) pg MCHC 34.6 (32.0-37.0) g/dL Plt Count 258 (140-440) 10*3/uL MPV 9.1 L (9.5-12.2) fL Immature Gran % (Auto) 0.2 % Neutrophils % 63.2 % Lymphocytes % 26.1 % Monocytes % 8.7 % Eosinophils % 1.3 % Basophils % 0.5 % Immature Gran # 0.01 (0.00-0.04) 10*3/uL Neutrophils # 3.95 (1.80-7.70) 10*3/uL Lymphocytes # 1.63 (0.90-5.00) 10*3/uL Monocytes # 0.54 (0.20-1.00) 10*3/uL Eosinophils # 0.08 (0.04-0.35) 10*3/uL Basophils # 0.03 (0.00-0.10) 10*3/uL Sodium 139 (137-145) mmol/L Potassium 4.4 (3.5-5.1) mmol/L Chloride 101 (98-107) mmol/L Carbon Dioxide 27 (22-30) mmol/L Anion Gap 11 mmol/L BUN 13 (9-20) mg/dL Creatinine 0.79 (0.66-1.25) mg/dL Est GFR (CKD-EPI)AfAm >90 (>60 ml/min/1.73 sqM) Est GFR (CKD-EPI)NonAf >90 (>60 ml/min/1.73 sqM) Glucose 85 (74-99) mg/dL Calcium 9.8 (8.4-10.2) mg/dL Total Bilirubin 1.0 (0.2-1.3) mg/dL AST 32 (17-59) U/L ALT 45 (4-49) U/L Alkaline Phosphatase 86 (38-126) U/L Total Protein 8.4 H (6.3-8.2) g/dL Albumin 5.3 H (3.5-5.0) g/dL Disposition Clinical Impression: Paresthesia of right upper extremity Disposition: ADMITTED IP TO THIS [facility] Condition: Fair Time of Disposition: 15:30 Decision Date: 10/22/24 Decision Time: 15:30
[2024-10-22 13:34] LABS: Basophils # (A) 0.03 10*3/uL (0.00-0.10); Basophils % (A) 0.5 %; Eosinophils # (A) 0.08 10*3/uL (0.04-0.35); Eosinophils % (A) 1.3 %; HCT 47.4 % (39.6-50.0); HGB 16.4 g/dL (13.0-17.0); Lymphocytes # (A) 1.63 10*3/uL (0.90-5.00); Lymphocytes % (A) 26.1 %; MCH 28.1 pg (27.0-32.0); MCHC 34.6 g/dL (32.0-37.0); MCV 81.2 fL (80.0-97.0); Monocytes # (A) 0.54 10*3/uL (0.20-1.00); Monocytes % (A) 8.7 %; Neutrophils # (A) 3.95 10*3/uL (1.80-7.70); Neutrophils % (A) 63.2 %; Platelet Count 258 10*3/uL (140-440); RBC 5.84 10*6/uL (4.40-5.60); RDW 12.1 % (11.5-14.5); WBC 6.24 10*3/uL (4.50-10.00)
[2024-10-22 13:52] LABS: ALT 45 U/L (4-49); AST 32 U/L (17-59); African American GFR (CKD) >90 (>60 ml/min/1.73 sqM); Albumin 5.3 g/dL (3.5-5.0); Alkaline Phosphatase 86 U/L (38-126); Anion Gap 11 mmol/L; Blood Urea Nitrogen 13 mg/dL (9-20); Calcium 9.8 mg/dL (8.4-10.2); Carbon Dioxide 27 mmol/L (22-30); Chloride 101 mmol/L (98-107); Glucose 85 mg/dL (74-99); Non-African American GFR(CKD) >90 (>60 ml/min/1.73 sqM); Potassium 4.4 mmol/L (3.5-5.1); Sodium 139 mmol/L (137-145); Total Protein 8.4 g/dL (6.3-8.2)
--- NOTE | 2024-10-22 14:00 | CT ---
EXAMINATION TYPE: CT brain wo con DATE OF EXAM: 10/22/2024 COMPARISON: 09/15/2024 CLINICAL INDICATION: Male, 34 years old with history of RUE sensory changes, history of CVA; PHH, RUE numbness and tingling. Hx of CVA. C/O left side MASSEY. CT DLP: 1159 mGycm Automated exposure control for dose reduction was used. Findings: The ventricles, basal cisterns and sulci over the convexities are within normal limits and there is n o mass effect or shift of midline structures. No abnormal density is seen throughout the brain parenchyma and there is no acute intra or extra-axia l hemorrhage. The posterior fossa including the brainstem, fourth ventricle and cerebellar pontine angles appear no rmal. Intraorbital contents appear normal and symmetric. Visualized paranasal sinuses and mastoid air cells are well aerated. The calvarium is intact. IMPRESSION: 1. There is no acute bleed or mass effect. 2. No significant interval change. [facility], , 10/22/2024 1:58 PM
--- NOTE | 2024-10-22 14:19 | CT ---
EXAMINATION TYPE: CT angio head neck DATE OF EXAM: 10/22/2024 COMPARISON: None CLINICAL INDICATION: Male, 34 years old with history of RUE sensory changes, history of CVA; PHH, RUE numbness and tingling. Hx of CVA. C/O left side MASSEY. TECHNIQUE: CTA scan of the head and neck is performed with IV Contrast, patient injected with 65 ml mL of Isovue 370, axial images are obtained, coronal and sagittal reformatted images are reviewed. 3D reconstructed images are created on an independent workstation and reviewed. CT DLP: [address] CTDI: mGy Automated exposure control for dose reduction was used. NASCET criteria was used in interpretation of this exam? FINDINGS: The brachiocephalic origins are widely patent and no significant stenosis. There is no significant stenosis of the common or internal carotid arteries within the neck. There is no stenosis of the vertebral arteries. Intracranially, there is no stenosis, segmental occlusion, sizable aneurysm sac or vascular malformat ion. IMPRESSION:. No significant abnormality seen. NASCET criteria was used in interpretation of this exam? [facility], , 10/22/2024 2:17 PM
[2024-10-22] MEDS ORDERED: HYDROmorphone 1 MG/ML 1 ML SYRINGE IVP PRN (15:41)
[2024-10-22] MEDS ORDERED: HYDROmorphone 0.5 MG/0.5 ML SYRINGE IVP PRN (15:41)
[2024-10-22] MEDS ORDERED: NALOXONE 0.4 MG/ML 1 ML VIAL IV PRN (15:41)
[2024-10-22] MEDS ORDERED: ONDANSETRON 4 MG/2 ML VIAL IVP PRN (15:41)
[2024-10-22] MEDS: ASPIRIN 81 MG PO STA (15:52)
[2024-10-22] MEDS: ATORVASTATIN 80 MG TAB PO SCH (21:29)
[2024-10-22 22:01] LABS: Bilirubin,Urine Negative (Negative); Blood,Urine Negative (Negative); Color,Urine Colorless; Glucose,Urine (UA) Negative (Negative); Ketones,Urine Negative (Negative); Leukocyte Esterase,Urine Negative (Negative); Nitrite,Urine Negative (Negative); PH, Urine 7.5 (5.0-8.0); Protein,Urine Negative (Negative); Specific Gravity,Urine 1.023 (1.001-1.035); Urobilinogen,Urine <2.0 mg/dL (<2.0)
[2024-10-22 22:26] LABS: Barbiturate Screen,Urine Not Detected (NotDetected); Benzodiazepines Screen,Urine Not Detected (NotDetected); Opiate Screen,Urine Not Detected (NotDetected); Oxycodone Screen, Urine Not Detected (NotDetected); Phencyclidine Screen,Urine Not Detected (NotDetected); Tricyclic Antidepressant,Urine Not Detected (NotDetected); Urn Cannabinoid Scrn Not Detected (NotDetected)
--- NOTE | 2024-10-23 01:59 | HP ---
HISTORY AND PHYSICAL CHIEF COMPLAINTS: Numbness and weakness of the right side. HISTORY OF PRESENT ILLNESS: A 34-year-old gentleman with past CVA, TIA, hyperlipidemia, liver disease, was complaining of right hand numbness and tingling, which is recurrent in nature. The patient came to [facility] for evaluation and treatment. Initial evaluation including CT angio showed no acute abnormality. The patient admitted for further evaluation. There is no history of fever, rigors, chills. PAST MEDICAL HISTORY: History of CVA, TIA, hyperlipidemia, history of liver disease, possible Schlatter's disease. Rest of the history and chart is also reviewed. HOME MEDICATIONS: Reviewed include coenzyme Q, dose and rest of medications reviewed. ALLERGIES: Bactrim. FAMILY HISTORY: No history of heart disease or strokes in the family. SOCIAL HISTORY: Previously smoking. REVIEW OF SYSTEMS: Fourteen-point review of systems negative except as mentioned earlier. PHYSICAL EXAMINATION: VITAL SIGNS: Pulse is 60, blood pressure 136/87, respirations 18. CHEST: Clear to auscultation. CARDIOVASCULAR: S1, S2 muffled. ABDOMEN: Soft, nontender. LEGS: No edema. No swelling. NERVOUS SYSTEM: Moves all 4 limbs. No focal deficit at this time. LABORATORY DATA: Reviewed. ASSESSMENT: 1. Numbness and weakness of the right side, right arm, possible acute TIA. 2. History of CVA, TIA. 3. Hyperlipidemia, history of liver disease. 4. Multiple complex medical issues. RECOMMENDATION: This 34-year-old gentleman presented with multiple complex medical issues. We will monitor the patient closely. Antiplatelet agents. Neurology consult, neurovascular workup, possible MRI and MRI as well as MRV of the head was ordered. Prognosis guarded because of multiple complex medical issues. Repeat labs. Further recommendations to follow. MMODL / IJN: [id number] /
[2024-10-23] MEDS: LEVOTHYROXINE 50 MCG TAB PO SCH (06:29)
[2024-10-23 08:04] LABS: Basophils # (A) 0.04 X 10*3/uL (0.00-0.10); Basophils % (A) 0.5 %; Eosinophils # (A) 0.16 X 10*3/uL (0.04-0.35); Eosinophils % (A) 2.0 %; HCT 48.2 % (39.6-50.0); HGB 15.8 g/dL (13.0-17.0); Immature Grans, Automated 0.20 %; Lymphocytes # (A) 2.70 X 10*3/uL (0.90-5.00); Lymphocytes % (A) 32.9 %; MCH 27.3 pg (27.0-32.0); MCHC 32.8 g/dL (32.0-37.0); MCV 83.4 FL (80.0-97.0); Monocytes # (A) 0.84 X 10*3/uL (0.20-1.00); Monocytes % (A) 10.2 %; NRBC Per 100 WBC 0 X 10*3/uL (0.00-0.01); Neutrophils # (A) 4.44 X 10*3/uL (1.80-7.70); Neutrophils % (A) 54.2 %; Platelet Count 244 X 10*3/uL (140-440); RBC 5.78 X 10*6/uL (4.40-5.60); RDW 12.3 % (11.5-14.5); WBC 8.20 X 10*3/uL (4.50-10.00)
[2024-10-23 08:12] LABS: Anion Gap 12.20 mmol/L (4.00-12.00); BUN/Creat Ratio 15.38 Ratio (12.00-20.00); Blood Urea Nitrogen 12.3 mg/dL (9.0-27.0); Calcium 9.7 mg/dL (8.7-10.3); Carbon Dioxide 23.8 mmol/L (21.6-31.8); Chloride 104 mmol/L (96-109); Glucose 90 mg/dL (70-110); Potassium 4.5 mmol/L (3.5-5.5); Sodium 140 mmol/L (135-145)
[2024-10-23] MEDS: ASPIRIN 81 MG PO SCH (08:26)
[2024-10-23] MEDS: CLOPIDOGREL 75 MG TAB PO SCH (08:26)
[2024-10-23] MEDS: MAGNESIUM OXIDE 400 MG TAB PO SCH (08:26)
--- NOTE | 2024-10-23 12:37 | CA ---
Transthoracic Echo Report Name: Ronald Wayne Age: 34 Gender: M : 1990 Exam Date: 10/23/2024 07:30 Exam Location: [facility] Ht (in): 74 Wt (lb): 253 Ordering Physician: Jaime Mathews MD Attending/Referring Phys: Billing Customer Service Representative Omero Soliz RDCS Procedure CPT: Indications: stroke Cardiac Hx: Technical Quality: Good Contrast 1: Agitated Saline Total Dose (mL): 10 Contrast 2: Total Dose (mL): MEASUREMENTS (Male / Female) Normal Values 2D ECHO LV Diastolic Diameter PLAX 4.3 cm 4.2 - 5.9 / 3.9 - 5.3 cm LV Systolic Diameter PLAX 2.9 cm IVS Diastolic Thickness 0.9 cm 0.6 - 1.0 / 0.6 - 0.9 cm LVPW Diastolic Thickness 0.9 cm 0.6 - 1.0 / 0.6 - 0.9 cm LV Relative Wall Thickness 0.4 RV Internal Dim ED PLAX 3.5 cm LVOT Diameter 2.2 cm LA Systolic Diameter LX 4.4 cm 3.0 - 4.0 / 2.7 - 3.8 cm LV Diastolic Volume MOD BP 148.7 cm??? 67 - 155 / 56 - 104 cm??? LV Systolic Volume MOD BP 65.6 cm??? - 58 / 19 - 49 cm??? LV Ejection Fraction MOD BP 55.8 % >= 55 % LV Cardiac Index MOD BP 2210.7 cm???/min???m??? LV Diastolic Volume MOD 4C 141.6 cm??? LV Systolic Volume MOD 4C 63.4 cm??? LV Ejection Fraction MOD 4C 55.2 % LV Cardiac Index MOD 4C 2082.6 cm???/min???m??? LV Diastolic Length 4C 9.7 cm LV Systolic Length 4C 7.9 cm LV Diastolic Volume MOD 2C 149.1 cm??? LV Systolic Volume MOD 2C 65.1 cm??? LV Ejection Fraction MOD 2C 56.3 % LV Cardiac Index MOD 2C 2237.1 cm???/min???m??? LV Diastolic Length 2C 10.1 cm LV Systolic Length 2C 8.3 cm LA Volume 76.0 cm??? 18 - 58 / 22 - 52 cm??? LA Volume Index 30.7 cm???/m??? 16 - 28 cm???/m??? DOPPLER MV Area PHT 2.5 cm??? Mitral E Point Velocity 64.3 cm/s Mitral A Point Velocity 49.1 cm/s Mitral E to A Ratio 1.3 MV Deceleration Time 308.1 ms TR Peak Velocity 194.1 cm/s TR Peak Gradient 15.1 mmHg FINDINGS Left Ventricle Left ventricular ejection fraction is estimated at 55-60 %. Normal left ventricular systolic function with no obvious regional wall motion abnormalities. Left ventricular cavity size normal. Right Ventricle Right ventricular systolic pressure within normal limits. Normal right ventricular size and function. Prominent moderator band in right ventricle (normal variant). Right Atrium Normal right atrial size. Negative agitated saline bubble study for right to left shunt. Left Atrium Mildly increased left atrial diameter. Mildly increased left atrial volume. Mildly increased left atrial area. Mitral Valve Structurally normal mitral valve. No mitral stenosis. Mild mitral regurgitation.mitral valve thickened. Aortic Valve Trileaflet aortic valve. No aortic stenosis. No aortic regurgitation. Tricuspid Valve Structurally normal tricuspid valve. No tricuspid stenosis. Mild tricuspid regurgitation. Pulmonic Valve Structurally normal pulmonic valve. No pulmonic stenosis. Trace pulmonic regurgitation. Pericardium No pericardial effusion. Aorta Normal size aortic root and proximal ascending aorta. CONCLUSIONS 1. Normal left ventricular size and systolic function 2. Mitral and tricuspid regurgitation 3. No shunting by contrast bubble study. Previewed by: Dr. Keyanna Anthony MD (Electronically Signed) Final Date: 23 October 2024 12:36
--- NOTE | 2024-10-23 13:11 | MR ---
INDICATION: Patient age:Male; 34 years old; Reason for study: headache r/o venous sinus thrombosis; PHH. Comparison: CT brain 10/22/2024, 09/15/2024, 06/04/2024, CTA head and neck 10/22/2024 TECHNIQUE: MRV of the brain was performed utilizing two-dimensional [id number] technique. FINDINGS: The superior sagittal sinus, confluence of sinuses, right transverse and sigmoid sinuses are opacifie d. The left sigmoid sinus is opacified however the transverse sinus is not. Arachnoid granulation wit hin the right transverse sinus. IMPRESSION: Possible left transverse sinus thrombosis versus MRV flow artifact. Recommend further evaluation with contrast. [facility], , 10/23/2024 1:09 PM
--- NOTE | 2024-10-23 13:41 | MR ---
EXAMINATION TYPE: MR brain/cspine wo/w DATE OF EXAM: 10/23/2024 1:22 PM COMPARISON: MRV head 10/23/2024, CTA head neck 10/22/2024, CT brain 10/22/2024, 09/15/2024, 06/04/2024 CLINICAL INDICATION: Male, 34 years old with history of left upper extremity paresthesia, RUE paresth esia. IV Contrast: 11 cc Gadobutrol TECHNIQUE: Multi planar, multi sequence imaging was performed through the brain and cervical spine. T he patient was then given 11 cc of Gadobutrol intravenously and multi planar, T1 fat-saturation image s were obtained. FINDINGS: The hoyos-white junctions, ventricular system, basal cisterns appear unremarkable. Age-appropriate cer ebral parenchymal volume. Diffusion-weighted imaging shows no evidence of restricted diffusion to sug gest acute/subacute infarct. Intracranial arterial flow voids are maintained. Midline structures show no abnormality. No FLAIR signal abnormalities. The susceptibility weighted images do not reveal any evidence for micro-hemorrhage. After administration of gadolinium, no abnormal enhancement is seen. A rachnoid granulations demonstrated within both transverse sinuses. No evidence for venous sinus throm bosis. The bone marrow signal is within normal limits. The paranasal sinuses and globes are unremarkable. Alignment: The cervical vertebral bodies have preserved heights. Alignment is within normal limits gi jeff patient positioning. Bones: Bone signal is within normal limits. Cord: The spinal cord is unremarkable with regards to their signal intensity and morphology. Discs: Intervertebral disc signal is maintained. C2-C3: No significant disc pathology. The spinal canal is patent. No neural foraminal stenosis. C3-C4: No significant disc pathology. The spinal canal is patent. No neural foraminal stenosis. C4-C5: No significant disc pathology. The spinal canal is patent. No neural foraminal stenosis. C5-C6: No significant disc pathology. The spinal canal is patent. No neural foraminal stenosis. C6-C7: No significant disc pathology. The spinal canal is patent. No neural foraminal stenosis. C7-T1: No significant disc pathology. The spinal canal is patent. No neural foraminal stenosis. Other: None. IMPRESSION: 1. No evidence of intracranial mass, acute/subacute infarct, or abnormal enhancement. No venous sinus thrombosis. Concurrent MRV finding is consistent with flow artifact. 2. No evidence for disc herniation or significant spinal canal stenosis. Normal contrast enhancement of the cervical spine. [facility], , 10/23/2024 1:39 PM
--- NOTE | 2024-10-23 13:53 | P.CNNES ---
History of Present Illness Consult date: 10/23/24 Requesting physician: Darrius Marsh Reason for Consult: right upper extremity paresthesia History of Present Illness: This is a 34-year-old gentleman with history of stroke Shan disease who presents the emergency department because of numbness tingling of the right upper extremity. Some of the history is obtained from the patient's who is at bedside. It seems that the patient has been having numbness and tingling initially he felt it in September 15, 2024 in which she had paresthesia of the right upper extremity initially started in the fingertips went to the arm then went to the foot and he came and had CT of the head which was unremarkable but was notified that he had unspecified questionable MCA and was pending to have outpatient MRI. His symptoms has resolved but it seems that yesterday around 8 8 3 AM he noticed that his entire right hand was numb and tingling and felt was moving up the forearm just below the elbow. Prior to that he was doing well. He denies any focal weakness, visual disturbance, difficulty swallowing, difficulty getting his words out. He feels his symptoms as improved. Yesterday associated with numbness tingling he also had left temporal headache that was 6/10 throbbing denies any radiation. Denies any nausea vomiting, denies any photophobia and phonophobia. He had migraine that is remote and has not had any further migraines. He does take aspirin 81 mg daily. He is also on Rovustatin 10 mg. Patient is an ex tobacco user and last time he smoked was in 2019. He rarely drinks alcohol. Denies any illicit drug use. It seems that the patient has underlying history of stroke in October 2023 in which he had difficulty focusing could not see, slurring of the speech and had right arm weakness. He was taken to [facility] and he was given TNK. 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 He was transferred to [facility] for escalation of care and there he had MRI which did not reveal any stroke as well as no thrombus in the middle cerebral artery or carotid was noted. He was notified that probably the anticoagulation broke it off. It seems that in January 12, 2024 he had similar presentation and it resolved and he was notified that was TIA. He followed up with the outpatient neurologist over our [facility] in [place], [place] but does not remember the name of the neurologist and that he was notified he was unsure if he truly had a stroke or not since there is no evidence on the MRI according to the patient and his . Patient was on aspirin 81 as well as Plavix 75 mg daily. Patient had extensive hypercoagulable workup and was evaluated by healthcare administration intern and the only thing that was positive was Shan's disease other than that everything was negative and no clotting disorder was noted. He had a transesophageal echocardiogram as well and that was unremarkable. Then he followed up with a different neurologist, Dr. Soto or over at [facility] facility and he was notified that he did not need Plavix so it was discontinued in June 10, 2024 but he continues to be on aspirin. As stated above he had symptoms on 09/15/2024 of tingling in the fingertips up to the arm and foot and had CT initially was told negative then was told unspecified in the MCA region and he was being followed up with his PCP since his neurologist appointment is not any close to now to have MRI of the brain as an outpatient to be coordinated by his PCP. He follows up with Dr. Avila, his mobile pet groomer and was pending to have a loop recorder planned down the line. States his family are estranged but he knows that sister has lupus and his aunt has lupus anticoagulant and it seems his uncle has history of pulmonary embolism. Some of the work-up during this hospital visit consisted of: I reviewed the lab workup. CT of the head as there is no acute bleed or mass effect. No significant interval change. I personally reviewed the CT of the head and I agree there is no acute or subacute ischemia. There is some motion artifact during the study. CT enterography of the head and neck is reported as no significant abnormality s een. Review of Systems As per HPI. 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 , migraines, cva 11/21/23, TIA 09/15/24 pt states this has happened a few other times since the cva, no residual issues, fatty liver, blood clot in rt arm, hoshimotos History of Any Multi-Drug Resistant Organisms: None Reported Additional Past Surgical History / Comment(s): wisdom teeth removed, "checked for hole in heart" Past Anesthesia/Blood Transfusion Reactions: No Reported Reaction Past Psychological History: No Psychological Hx Reported Smoking Status: Former smoker Past Alcohol Use History: Occasional Additional Past Alcohol Use History / Comment(s): quit 2018 Past Drug Use History: None Reported - Past Family History Father Family Medical History: No Reported History Medications and Allergies Home Medications Medication Instructions Recorded Confirmed Type Aspirin [Adult Low Dose Aspirin EC] 81 mg PO DAILY 12/01/23 10/22/24 History Levothyroxine Sodium [Synthroid] 50 mcg PO DAILY 12/01/23 10/22/24 History Magnesium Oxide [Magox 400] 400 mg PO DAILY 06/04/24 10/22/24 History Ubidecarenone [Coenzyme Q10] 200 mg PO DAILY 06/04/24 10/22/24 History Rosuvastatin [Crestor] 10 mg PO HS 10/22/24 10/22/24 History Allergies Allergy/AdvReac Type Severity Reaction Status Date / Time sulfamethoxazole AdvReac Rapid Verified 10/22/24 16:58 [From Bactrim] Heart Rate trimethoprim [From Bactrim] AdvReac Rapid Verified 10/22/24 16:58 Heart Rate Physical Examination - Vital Signs Vital Signs: Vital Signs Temp Pulse Pulse Pulse Resp BP BP 10/23/24 08:00 17 10/23/24 07:00 98.4 F 58 L 15 120/73 10/23/24 02:00 98.1 F 71 17 10/23/24 00:13 98.0 F 74 17 10/22/24 23:21 97.4 F L 73 16 149/104 10/22/24 19:43 59 L 18 138/94 10/22/24 15:55 60 18 136/87 BP Pulse Ox 10/23/24 08:00 10/23/24 07:00 98 10/23/24 02:00 121/83 97 10/23/24 00:13 131/87 97 10/22/24 23:21 97 10/22/24 19:43 99 10/22/24 15:55 99 Intake and Output 10/22/24 10/23/24 10/23/24 22:59 06:59 14:59 Other: Voiding Method Toilet Toilet # Voids 2 Weight 114.759 kg GENERAL: The patient is lying in bed and is not in acute distress. NEUROLOGICAL: Higher mental function: The patient is awake, alert, oriented to self, place and time. Patient is following commands. No aphasia and no neglect. Cranial nerves: The pupils are round, equal (4mm) bilaterally and reactive to light and accommodation. Visual morrison are full to confrontation throughout. Extraocular movement is intact no nystagmus is noted. Facial sensation is normal to touch throughout. The facial strength is normal throughout. Hearing is normal bilaterally to hand rub. Tongue is midline and moved [id number] without any difficulty. No dysarthria is noted. Shoulder shrug is normal bilaterally. Motor: The strength is 5 over 5 throughout. Normal tone and bulk. Cerebellum: Normal finger to nose heel to calles bilaterally. Sensation: Sensation is normal to touch throughout. Reflexes (right/left): 2+ throughout Plantars are downgoing bilaterally. Results - Laboratory Findings CBC and BMP: 10/23/24 04:57 10/23/24 04:57 Abnormal Lab Findings: Abnormal Labs 10/22/24 10/22/24 10/23/24 13:20 13:20 04:57 RBC 5.84 H 5.78 H MPV 9.1 L 9.2 L Anion Gap Total Protein 8.4 H Albumin 5.3 H 10/23/24 04:57 RBC MPV Anion Gap 12.20 H Total Protein Albumin Assessment and Plan Assessment: This is a 34-year-old gentleman with a history of stroke in October 2023 of left MCA symptoms post IV TNK and his symptoms resolved TIA, Shan's disease who presents the emergency department because of paresthesia of the right upper extremity as well as headache over the left temporal region. Currently his symptoms has resolved. Likely transient ischemic attack. IV TNK since outside the window and the risk outweigh the benefit. History of left MCA stroke symptoms with dysarthria, right arm weakness, visual disturbance, aphasia and initially had images at [facility] and he was notified that he had left MCA occlusion as well as left ICA occlusion patient received TN K was transferred for escalation of care to [facility] but his images was unremarkable and his symptoms resolved. Patient had a hypercoagulable workup which was unremarkable as well as transesophageal echocardiogram cardiogram which was unremarkable History of TIA in which the patient had paresthesia of the right upper extremity as well as right foot in September 15, 2024 as well as January 11, 2025 he had similar left MCA symptoms. Underlying history of Shan's disease Tobacco use Plan: Patient was given aspirin 324 mg once in the ED then was started on aspirin 81 mg. He was also started on Plavix 75 mg daily. Prior to this patient was only on aspirin. Recommend continuing dual antiplatelet because he continues to have strokelike symptoms. He is on Lipitor 80 mg nightly and that sufficient for secondary stroke prophylaxis I ordered MRI of the brain. ED team ordered MR a of the head MRV and I will only pursue the MRV since the patient already received the CT angiography. I ordered MRI of the cervical spine as well Pending 2D echo I ordered TSH, lipid panel, hemoglobin A1c Continue neurochecks Cardiac monitoring Recommend permissive hypertension for 24 to 48 hours I consulted cardiology team for loop recorder placement Will defer the rest of the medical management to primary other specialist For DVT prophylaxis the patient is ambulatory. Plan is discussed with the patient and his was at bedside. Thank you for the consultation. Time with Patient: Greater than 30
[2024-10-23 15:41] LABS: Cholesterol 142.00 mg/dL (0.00-200.00); HDL Cholesterol 43.20 mg/dL (40.00-60.00); LDL Cholesterol,Calculated 72.4 mg/dL (0.0-131.0); Triglycerides 132.00 mg/dL (0.00-149.00); VLDL Calculation 26.40 mg/dL (5.00-40.00)
--- NOTE | 2024-10-23 23:02 | P.PN ---
Subjective Progress Note Date: 10/23/24 This is a 34-year-old male who was recently admitted with numbness and weakness on the right side with history of CVA/TIA that reported right hand numbness and tingling that is intermittent and recurrent. Patient undergoing further workup with neurology scheduled to undergo MRI and MRA at this time. Nursing staff reports it is sometime this afternoon. Patient reports continues to have some right hand tingling that is no worse. Patient is maintained on aspirin currently and there was discussion of possibly adding Plavix. Patient is afebrile with no reports of chest pain or shortness of breath. Patient has been up and walking and gait is steady. Will await MRI report and discuss further with neurology regarding treatment plan and discharge planning moving forward. Review of systems: Constitutional: No reports of fatigue, fever, or chills Cardiovascular: No reports of chest pain or palpitations Respiratory: No reports of shortness of breath or cough GI: No reports of nausea, no reports of vomiting, no diarrhea : No reports of dysuria or retention Neurovascular: reports of continued right upper extremity weakness, with tingling intermittently All medications have been reviewed PHYSICAL EXAMINATION: GENERAL: The patient is alert and oriented x4, Well developed, well nourished. Obese HEENT: Pupils are round and equally reacting to light. EOMI. no scleral icterus. No conjunctival pallor. Normocephalic, atraumatic. No pharyngeal erythema. No thyromegaly. CARDIOVASCULAR: S1 and S2 muffled PULMONARY: diminished breath sounds bilaterally with no wheezing or rhonchi not ed. ABDOMEN: soft. Nontender on exam. obese. non-distended, normoactive bowel sounds. No palpable organomegaly. MUSCULOSKELETAL: No joint swelling or deformity. EXTREMITIES: No cyanosis, clubbing, or pedal edema. NEUROLOGICAL: Gross neurological examination did not reveal any focal deficits. SKIN: No rashes. Assessment: Numbness and weakness of the right side, right arm small acute TIA Hyperlipidemia Obesity with a BMI of 32.5 History of hypothyroidism history of previous blood clot in the right arm History of Shan's former smoker GI prophylaxis DVT prophylaxis Full code Plan: Recommend to continue with current medications and management patient underwent MRI today showing intracranial mass, acute with concurrent MRV finding consistent with flow artifact. No evidence of disc herniation or significant spinal canal stenosis with normal contrast-enhancement of the cervical. Patient also underwent showing possible left transverse sinus thrombosis versus MRV flow artifact and neurology has consulted cardiology for possible loop recorder placement. Patient will be monitored overnight while waiting for cardiology consultation. Continue current regimen Possible discharge planning in the next 24 hours The impression and plan of care has been dictated by Zahraa Gamino, nurse practitioner as directed. Dr. Reid MD I have performed a history and examination and MDM of this patient, discussed the same with the dictator, and agree with the dictator's assessment and plan as written ,documented as a scribe. Based on total visit time, I have performed more than 50% of the visit. Any additional findings or plans will be noted. Objective - Vital Signs Vital signs: Vital Signs Temp 98.1 F 10/23/24 14:42 Pulse 72 10/23/24 14:42 Resp 14 10/23/24 14:42 BP 128/80 10/23/24 14:42 Pulse Ox 99 10/23/24 14:42 FiO2 Intake & Output 10/22/24 10/23/24 10/23/24 18:59 06:59 18:59 Weight 114.759 kg 114.759 kg Other: Voiding Method Toilet Toilet # Voids 2 5 - Labs CBC & Chem 7: 10/23/24 04:57 10/23/24 04:57 Labs: Abnormal Lab Results - Last 24 Hours (Table) 10/23/24 10/23/24 Range/Units 04:57 04:57 RBC 5.78 H (4.40-5.60) X 10*6/uL MPV 9.2 L (9.5-12.2) FL Anion Gap 12.20 H (4.00-12.00) mmol/L
[2024-10-24 07:33] VITALS: RESP 17
--- NOTE | 2024-10-24 11:28 | P.CRDCN ---
History of Present Illness History of present illness: HISTORY OF PRESENT ILLNESS: This is a 34-year-old male with a past medical history significant for CVA/TIA, hypertension, hyperlipidemia, and hypothyroidism. Patient follows in the office with Dr. Avila. We have been asked to see the patient in consultation for loop recorder insertion. Patient examined at the bedside. Patient presented to the hospital with a chief complaint of tingling in his arm. He states his symptoms lasted for longer than 3 hours which prompted him to come to the emergency room. He states his symptoms have since resolved. He denies any dizziness or lightheadedness. He denies any chest pain or pressure. Denies any shortness of breath. Patient does have a history of recurrent TIA. He was recommended to undergo loop recorder insertion in the past but initially refused and then was unable to have this performed during recent hospitalization DIAGNOSTICS: - EKG not available at the time of this dictation - Current home cardiac medications include Lipitor 80 mg at night, Plavix 75 mg daily, aspirin 81 mg daily. - Echocardiogram completed during this hospitalization reveals ejection fraction 55 to 60%, no obvious regional wall motion abnormalities, negative bubble study - Cardiac catheterization history: Patient denies REVIEW OF SYSTEMS: At the time of my exam: CONSTITUTIONAL: Denies fever or chills. HEENT: Denies blurred vision, vision changes, or eye pain. Denies hemoptysis CARDIOVASCULAR: Denies chest pain. Denies orthopnea. Denies PND. Denies palpitations RESPIRATORY: Denies shortness of breath. GASTROINTESTINAL: Denies abdominal pain. Denies nausea or vomiting. HEMATOLOGIC: Denies bleeding disorders. GENITOURINARY: Denies any blood in urine. SKIN: Denies pruitis. Denies rash. PHYSICAL EXAM: VITAL SIGNS: Reviewed. GENERAL: Well-developed in no acute distress. HEENT: Head is normocephalic. Pupils are equal, round. Sclerae anicteric. Mucous membranes of the mouth are moist. Neck supple. No JVD or thyromegaly LUNGS: Respirations even and unlabored. Lungs essentially clear to auscultation bilaterally. HEART: Regular rate and rhythm. S1 and S2 heard. ABDOMEN: Soft. Nondistended. Nontender. EXTREMITIES: Normal range of motion. No clubbing or cyanosis. Peripheral pulses intact. No lower extremity edema NEUROLOGIC: Awake and alert. Oriented x 3. ASSESSMENT: Recurrent TIA History of CVA/TIA Hypertension Hyperlipidemia Hypothyroidism Former nicotine dependence, patient quit smoking in 2019 PLAN: 2D echo obtained and reviewed Continue current cardiac medications including aspirin, Plavix, Lipitor Patient to undergo loop recorder insertion today with Dr. Vasquez Patient may follow-up postdischarge in the office with Dr. Avila Nurse practitioner note has been reviewed by physician. Signing provider agrees with the documented findings, assessment, and plan of care documented by [facility] as a scribe. 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 , migraines, cva 11/21/23, TIA 09/15/24 pt states this has happened a few other times since the cva, no residual issues, fatty liver, blood clot in rt arm, hoshimotos History of Any Multi-Drug Resistant Organisms: None Reported Additional Past Surgical History / Comment(s): wisdom teeth removed, "checked for hole in heart" Past Anesthesia/Blood Transfusion Reactions: No Reported Reaction Past Psychological History: No Psychological Hx Reported Smoking Status: Former smoker Past Alcohol Use History: Occasional Additional Past Alcohol Use History / Comment(s): quit 2019 Past Drug Use History: None Reported - Past Family History Father Family Medical History: No Reported History Medications and Allergies Home Medications Medication Instructions Recorded Confirmed Type Aspirin [Adult Low Dose Aspirin EC] 81 mg PO DAILY 12/01/23 10/22/24 History Levothyroxine Sodium [Synthroid] 50 mcg PO DAILY 12/01/23 10/22/24 History Magnesium Oxide [Magox 400] 400 mg PO DAILY 06/04/24 10/22/24 History Ubidecarenone [Coenzyme Q10] 200 mg PO DAILY 06/04/24 10/22/24 History Atorvastatin [Lipitor] 80 mg PO HS #30 tab 10/24/24 Rx Clopidogrel [Plavix] 75 mg PO DAILY #30 tab 10/24/24 Rx Allergies Allergy/AdvReac Type Severity Reaction Status Date / Time sulfamethoxazole AdvReac Rapid Verified 10/22/24 16:58 [From Bactrim] Heart Rate trimethoprim [From Bactrim] AdvReac Rapid Verified 10/22/24 16:58 Heart Rate Physical Exam Vitals: Vital Signs Temp Pulse Resp BP Pulse Ox 10/24/24 06:54 97.6 F 52 L 17 119/78 97 10/24/24 02:36 98.3 F 76 16 116/75 97 10/23/24 20:52 97.8 F 78 16 115/76 97 10/23/24 14:42 98.1 F 72 14 128/80 99 10/23/24 14:00 17 Intake and Output 10/23/24 10/24/24 10/24/24 22:59 06:59 14:59 Intake Total 180 240 Balance 180 240 Intake: Oral 180 240 Other: Voiding Method Toilet Toilet Toilet # Voids 3 2 Results 10/23/24 04:57 10/23/24 04:57 Lipids 10/23/24 Range/Units 04:57 Triglycerides 132.00 (0.00-149.00) mg/dL Cholesterol 142.00 (0.00-200.00) mg/dL HDL Cholesterol 43.20 (40.00-60.00) mg/dL Cholesterol/HDL Ratio 3.29 Ratio Current Medications Generic Name Dose Route Start Last Admin Trade Name Freq PRN Reason Stop Dose Admin Aspirin 81 mg 10/23/24 09:00 10/24/24 09:29 Aspirin 81 Mg PO 81 mg DAILY HALEY Administration Atorvastatin Calcium 80 mg 10/22/24 21:00 10/23/24 20:58 Atorvastatin 80 Mg Tab PO 80 mg HS HALEY Administration Clopidogrel Bisulfate 75 mg 10/23/24 09:00 10/24/24 09:29 Clopidogrel 75 Mg Tab PO 75 mg DAILY HALEY Administration Hydromorphone HCl 0.5 mg 10/22/24 15:41 Hydromorphone 0.5 Mg/0.5 Ml Syringe IVP Q3HR PRN Moderate Pain (Scale 4 to 6) Hydromorphone HCl 1 mg 10/22/24 15:41 Hydromorphone 1 Mg/Ml 1 Ml Syringe IVP Q3HR PRN Severe Pain (Scale 7 to 10) Levothyroxine Sodium 50 mcg 10/23/24 06:30 10/24/24 07:00 Levothyroxine 50 Mcg Tab PO 50 mcg 0630 HALEY Administration Magnesium Oxide 400 mg 10/23/24 09:00 10/24/24 09:29 Magnesium Oxide 400 Mg Tab PO 400 mg DAILY HALEY Administration Naloxone HCl 0.2 mg 10/22/24 15:41 Naloxone 0.4 Mg/Ml 1 Ml Vial IV Q2M PRN Opioid Reversal Ondansetron HCl 4 mg 10/22/24 15:41 Ondansetron 4 Mg/2 Ml Vial IVP Q8HR PRN Nausea And Vomiting Intake and Output 10/23/24 10/24/24 10/24/24 22:59 06:59 14:59 Intake Total 180 240 Balance 180 240 Intake: Oral 180 240 Other: Voiding Method Toilet Toilet Toilet # Voids 3 2 10/23/24 04:57 10/23/24 04:57
[2024-10-24] MEDS: LIDOCAINE 1% INJ 10MG/ML (30 ML VIAL-PF) SQ ONE (12:03)
--- NOTE | 2024-10-24 13:23 | P.PN ---
Subjective Progress Note Date: 10/24/24 I am following-up with the patient and he feels still back to baseline and no new neurological issues. Objective - Vital Signs Vital signs: Vital Signs Temp 97.6 F 10/24/24 06:54 Pulse 52 L 10/24/24 06:54 Resp 17 10/24/24 06:54 BP 119/78 10/24/24 06:54 Pulse Ox 97 10/24/24 06:54 FiO2 Intake & Output 10/23/24 10/24/24 10/24/24 18:59 06:59 18:59 Intake Total 180 290 Balance 180 290 Intake: IV 50 Oral 180 240 Other: Voiding Method Toilet Toilet Toilet # Voids 5 2 - Exam GENERAL: The patient is lying in bed and is not in acute distress. NEUROLOGICAL: Higher mental function: The patient is awake, alert, oriented to self, place and time. Patient is following commands. No aphasia and no neglect. Cranial nerves: The pupils are round, equal (4mm) bilaterally and reactive to light and accommodation. Visual morrison are full to confrontation throughout. Extraocular movement is intact no nystagmus is noted. Facial sensation is normal to touch throughout. The facial strength is normal throughout. Hearing is normal bilaterally to hand rub. Tongue is midline and moved [id number] without any difficulty. No dysarthria is noted. Shoulder shrug is normal bilaterally. Motor: The strength is 5 over 5 throughout. Normal tone and bulk. Cerebellum: Normal finger to nose heel to calles bilaterally. Sensation: Sensation is normal to touch throughout. Reflexes (right/left): 2+ throughout Plantars are downgoing bilaterally. Some of the work-up during this hospital visit consisted of: HbA1c: 5.2 Lipid panel: TG 132, cholestrol 142, LDL 72 and HDL 43 TSH: 2.20 CT of the head as there is no acute bleed or mass effect. No significant interval change. I personally reviewed the CT of the head and I agree there is no acute or subacute ischemia. There is some motion artifact during the study. CT enterography of the head and neck is reported as no significant abnormality seen. 2D echo: Normal left ventricular sizre and systolic function. No shuntin by contrast bubble study. MRI Brain and cervical spine: No evidence of intracranial mass, acute/subacute infarct or abnormal enhancement. No venous sinus thrombosis. Concurrent MRV finding is consistent with flow artifact. No evidence for disc herniation or significant spinal canal stenosis. Normal contrast enhancement of the cervical spine. MRV: Possible left transverse sinus thrombosis vs MRV flow artifact. Recommend further evaluation with contrast. 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 Currently his symptoms has resolved. Likely transient ischemic attack. No IV TNK since outside the window and the risk outweigh the benefit and patient symptoms resolved. MRI Brain and cervical is negative for acute or subacute process. Initially reported no venous thrombosis and has artifact but on different reported reported has possible left transverse sinus thrombosis vs MRV flow arttifact. History of left MCA stroke symptoms with dysarthria, right arm weakness, visual disturbance, aphasia and initially had images at [facility] and he was notified that he had left MCA occlusion as well as left ICA occlusion patient received TN K was transferred for escalation of care to [facility] but his images was unremarkable and his symptoms resolved. Patient had a hypercoagulable workup which was unremarkable as well as transesophageal echocardiogram cardiogram which was unremarkable History of TIA in which the patient had paresthesia of the right upper extremity as well as right foot in September 15, 2024 as well as January 11, 2025 he had similar left MCA symptoms. Underlying history of Shan's disease Tobacco use Plan: Patient was given aspirin 324 mg once in the ED then was started on aspirin 81 mg. He was also started on Plavix 75 mg daily. Prior to this patient was only on aspirin. Recommend continuing dual antiplatelet because he continues to have strokelike symptoms. He is on Lipitor 80 mg nightly and that sufficient for secondary stroke prophylaxis I will try to reach reading radiologist for clarification of ?sinus thrombosis vs artifact. Continue neurochecks Cardiac monitoring I consulted cardiology team for loop recorder placement and possible placement today. If patient continues to have further neurological symptoms to obtain a routine EEG or prolonged EEG and hopefully we capture episode to rule out any ?epileptic in nature manifesting as stroke like symptoms I will have the patient follow-up with Dr. 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 Will defer the rest of the medical management to primary other specialist For DVT prophylaxis the patient is ambulatory. Upon discharge, recommend the patient to follow-up with his outpatient neurologist, Dr. Soto over [facility] Plan is discussed with the patient and his was at bedside. ADDENDUM: I spoke with Dr. 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 He had loop recorder placed. From neurological perspective, he is clear for discharge. Time with Patient: Less than 30
[2024-10-24 14:54] VITALS: BP 126/81; PULSE 69; TEMP 98.5
--- NOTE | 2024-10-24 23:07 | P.PCN ---
Description of Procedure: Procedure: Insertion of loop recorder Indication: Cryptogenic stroke CONSENT:I have discussed the risks, benefits and alternative therapies for the above-mentioned procedure. The patient has indicated understanding and acceptance of the risks and procedures discussed. PROCEDURE: Patient was brought to the catheterization lab in a fasting state. Patient was prepped and draped in the usual fashion. 1% lidocaine was used to anesthetize the area of the left third intercostal space. Using the loop recorder incision device, a small 0.5 cm incision was made in the left 3rd intercostal space. Next the loop recorder was deployed in the 3rd intercostal space subcutaneously using the insertion tool. Thresholds were checked and were excellent at 0.7V. Next the incision was closed using Dermabond. Steristrips were placed over the incision and the procedure was completed. The patient tolerated the procedure well. The patient was transported to the post cath holding area in stable condition. TappInt IQ 3+ loop recorder serial number: [id number]
--- NOTE | 2024-10-27 13:33 | P.DS ---
Providers Date of admission: 10/22/24 16:24 Expected date of discharge: 10/24/24 Attending physician: Jonel Rao MD Consults: 10/22/24 22:27 Consult Physician Stat Consulting Provider: Matthew Florence Consult Reason/Comments: right upper extremity paresthesia Do you want consulting provider notified?: Yes 10/23/24 13:13 Consult Physician Routine Consulting Provider: Alex Avila Consult Reason/Comments: loop recorder placement Do you want consulting provider notified?: Yes Primary care physician: Julian [place] Hospital Course: Final diagnosis Numbness and weakness of the right side, right arm small acute TIA Status post loop recorder placement Hyperlipidemia Obesity with a BMI of 32.5 History of hypothyroidism history of previous blood clot in the right arm History of Shan's former smoker GI prophylaxis DVT prophylaxis Full code Discharge disposition Patient is being discharged in a stable condition with guarded prognosis to home. Patient will follow-up with Dr Appointment in the outpatient setting upon discharge. Patient is to continue with current medications and outpatient follow-up with cardiology and neurology as scheduled. Total time taken is greater than 35 minutes. Hospital course This is a 34-year-old male who was recently admitted with numbness and weakness on the right side mainly right upper arm and hand with acute TIA being followed by cardiology as well as neurology. Patient is on aspirin along with statin therapy and is post loop recorder per neurology request. Patient by cardiology and neurology outpatient follow-up. Please refer to consultation notes for further HPI. Currently no reports of chest pain, shortness of breath, or palpitations. Patient is afebrile. No reports of nausea or vomiting and patient is tolerating diet. Patient will be discharged home today. Guarded prognosis Physical exam: Gen: This is a 34-year-old male who is awake, alert and oriented x 3, well- developed, well-nourished, obese HEENT: Head is atraumatic, normocephalic. Pupils equal, round. Sclerae is anicteric. NECK: Supple. No JVD. No lymphadenopathy. No thyromegaly. LUNGS: Clear to auscultation. No wheezes or rhonchi. No intercostal retractions. HEART: Regular rate and rhythm. No murmur. ABDOMEN: Soft. Obese. Bowel sounds are present. No masses. No tenderness. EXTREMITIES: No pedal edema. No calf tenderness. NEUROLOGICAL: Patient is awake, alert and oriented x3. Cranial nerves 2 through 12 are grossly intact. Please refer to medication reconciliation sheet for a list of medications. The impression and plan of care has been dictated by Zahraa Gamino, Nurse Practitioner as directed. Dr. Reid MD I have performed a history and examination and MDM of this patient, discussed the same with the dictator, and agree with the dictator's assessment and plan as written ,documented as a scribe. Based on total visit time, I have performed more than 50% of the visit. Patient Condition at Discharge: Fair Plan - Discharge Summary Discharge Rx Participant: No New Discharge Prescriptions: New Atorvastatin [Lipitor] 80 mg PO HS #30 tab Clopidogrel [Plavix] 75 mg PO DAILY #30 tab Continue Levothyroxine Sodium [Synthroid] 50 mcg PO DAILY Ubidecarenone [Coenzyme Q10] 200 mg PO DAILY Aspirin [Adult Low Dose Aspirin EC] 81 mg PO DAILY Magnesium Oxide [Magox 400] 400 mg PO DAILY Discontinued Rosuvastatin [Crestor] 10 mg PO HS Discharge Medication List Aspirin [Adult Low Dose Aspirin EC] 81 mg PO DAILY 12/01/23 [History] Levothyroxine Sodium [Synthroid] 50 mcg PO DAILY 12/01/23 [History] Magnesium Oxide [Magox 400] 400 mg PO DAILY 06/04/24 [History] Ubidecarenone [Coenzyme Q10] 200 mg PO DAILY 06/04/24 [History] Atorvastatin [Lipitor] 80 mg PO HS #30 tab 10/24/24 [Rx] Clopidogrel [Plavix] 75 mg PO DAILY #30 tab 10/24/24 [Rx] Follow up Appointment(s)/Referral(s): Alex Avila MD [STAFF PHYSICIAN] - 10/30/24 4:00 pm Julian Booker DO [Primary Care Provider] - 1-2 days Kylie Tello MD [STAFF PHYSICIAN] - 2 Weeks (left venous sinus hypoplasia. r/o thrombosis. Recommend diagnostic cerebral angiogram ) Patient Instructions/Handouts: Transient Ischemic Attack (DC), Cardiac Loop Recorder Insertion (DC) Activity/Diet/Wound Care/Special Instructions: Activity limited until follow-up Follow-up with primary care provider on discharge Follow-up with your neurologist of [facility] Follow-up with cardiology outpatient Continue taking medications as prescribed Discharge Disposition: HOME SELF-CARE
== END 2024-10-24 16:45 | disposition home or self-care (01) ==
LOC: EC 12:35 → 6NMEDSUR 16:24
PROVIDERS: ADMIT Internal Medicine; ATTEND Internal Medicine
DX: G45.9 Transient cerebral ischemic attack, unspecified (principal); E06.3 Autoimmune thyroiditis; E66.9 Obesity, unspecified; E78.5 Hyperlipidemia, unspecified; I10 Essential (primary) hypertension; Z86.73 Personal history of transient ischemic attack (TIA), and cerebral infarction without residual deficits; Z87.891 Personal history of nicotine dependence; Z79.899 Other long term (current) drug therapy; Z79.890 Hormone replacement therapy; Z79.82 Long term (current) use of aspirin; Z79.02 Long term (current) use of antithrombotics/antiplatelets; Z68.32 Body mass index [BMI] 32.0-32.9, adult; Z88.2 Allergy status to sulfonamides
CPT/HCPCS: 99285; 36415; 93306; 97161; 97165; 33285; 80061; 80053; 80048; 84443; 85025 ×2; 81003; 80306; 83036; 70496; 70450; 70498; 70544; 70553; 72156; G0378 ×3; C1764; J0690; J2003; Q9967; A9585